=== PATIENT | male | born 1945 | race African-American/Black ===

== ENCOUNTER 2018-02-24 07:43 | Inpatient (IN) | payer BC, MEDICAID ==
[~2018-02-24] VITALS: Ht 175.3 cm; Wt 89.8 kg
[2018-02-24] MEDS ORDERED: METHYLPREDNISOLONE SOD SUCC 125 MG/2 ML VIAL IV STA (08:38)
[2018-02-24] MEDS ORDERED: IPRATROPIUM/ALBUTEROL 0.5-3(2.5)MG/3ML NEB HHN ONE (08:45)
[2018-02-24] MEDS ORDERED: IPRATROPIUM/ALBUTEROL 0.5-3(2.5)MG/3ML NEB ONE (08:49)
[2018-02-24 09:17] LABS: HEMATOCRIT. 26.5 % (42.0-52.0); HEMOGLOBIN. 7.8 g/dL (14.0-18.0); MEAN CORPUSCULAR HEMOGLOBIN 20.2 pg (28.0-32.0); MEAN CORPUSCULAR VOLUME 68.9 fL (80.0-94.0); MEAN PLATELET VOLUME 8.8 fl (7.4-10.4); PLATELET 422 x1000/uL (130-400); RED BLOOD CELL COUNT 3.84 mill/uL (4.7-6.1); RED CELL DISTRIBUTION WIDTH 26.3 % (11.6-14.6)
[2018-02-24 09:25] LABS: CHLORIDE 109 mEq/L (98-107)
[2018-02-24 09:41] LABS: PLATELET ESTIMATE SLIGHTLY INCREASED
[2018-02-24] MEDS ORDERED: FUROSEMIDE 40MG/4ML VIAL IVP ONE (11:45)
[2018-02-24 17:00] VITALS: BP 139/58
[2018-02-24] MEDS ORDERED: CLONIDINE 0.1MG TABLET PO PRN (17:45)
[2018-02-24] MEDS ORDERED: ONDANSETRON HCL 4MG/2ML INJ IV PRN (17:45)
[2018-02-24] MEDS ORDERED: GUAIFENESIN 200MG/10ML SUGAR FREE UDC PO PRN (17:45)
[2018-02-24] MEDS ORDERED: MAGNESIUM/ALUMINUM HYDROXIDE/SIMETHICONE 30ML UDC PO PRN (17:45)
[2018-02-24] MEDS ORDERED: ACETAMINOPHEN 325MG TABLET PO PRN (17:45)
[2018-02-24 18:24] LABS: TOTAL IRON BINDING CAPACITY 373 ug/dL (250-450)
[2018-02-24] MEDS: LOSARTAN POTASSIUM 25 MG TABLET PO SCH (18:52)
[2018-02-24 20:00] VITALS: BP 124/52
[2018-02-24 20:36] LABS: BG BASE EXCESS 2.4 mmol/L (-2.0-2.0); BG CARBOXYHEMOGLOBIN 0.8 % (0.5-1.5); BG DEOXYHEMOGLOBIN 3.1 % (0.0-5.0); BG FRACTION INSPIRED OXYGEN 21; BG HCO3 ACT 25.7 mmol/L (22.0-26.0); BG METHEMOGLOBIN 0.3 % (0.0-1.5); BG OXYGEN SATURATION 96.9 % (92.0-98.5); BG OXYHEMOGLOBIN 95.8 % (94.0-97.0); BG PCO2 34.7 mmHg (35.0-45.0); BG PH 7.488 (7.350-7.450); BG PO2 87.7 mmHg (75.0-100.0); BG SAMPLE SITE RIGHT RADIAL; BG TOTAL HEMOGLOBIN 8.5 g/dL (12.0-18.0); BG VENT MODE ROOM AIR
[2018-02-24] MEDS: ENOXAPARIN 40MG/0.4ML SYR SUBCUT SCH (21:01)
[2018-02-24] MEDS: AZITHROMYCIN 500 MG in DEXT 5% WATER 250 ML IV SCH (21:39)
[2018-02-24] MEDS: IPRATROPIUM/ALBUTEROL 0.5-3(2.5)MG/3ML NEB HHN SCH (22:19)
[2018-02-25] VITALS (10 sets, daily range): BP systolic 111–137; BP diastolic 50–69
[2018-02-25] MEDS: IPRATROPIUM/ALBUTEROL 0.5-3(2.5)MG/3ML NEB HHN SCH ×6 (00:14→21:13)
[2018-02-25 03:55] LABS: *AMPHETAMINES SCREEN URINE NEGATIVE (NEGATIVE); *BARBITURATES SCREEN URINE NEGATIVE (NEGATIVE); *BENZODIAZEPINES SCREEN URINE NEGATIVE (NEGATIVE); *COCAINE SCREEN URINE PRESUMTIVE POSITIVE (NEGATIVE); CANNABINOID URINE SCREEN PRESUMTIVE POSITIVE (NEGATIVE); METHADONE URINE SCREEN NEGATIVE (NEGATIVE); OPIATES URINE SCREEN NEGATIVE (NEGATIVE); PHENCYCLIDINE URINE SCREEN NEGATIVE (NEGATIVE)
[2018-02-25 06:46] LABS: HEMATOCRIT. 26.7 % (42.0-52.0); HEMOGLOBIN. 8.2 g/dL (14.0-18.0); MEAN CORPUSCULAR HEMOGLOBIN 21.5 pg (28.0-32.0); MEAN CORPUSCULAR VOLUME 69.9 fL (80.0-94.0); MEAN PLATELET VOLUME 8.8 fl (7.4-10.4); PLATELET 379 x1000/uL (130-400); RED BLOOD CELL COUNT 3.82 mill/uL (4.7-6.1); RED CELL DISTRIBUTION WIDTH 28.7 % (11.6-14.6)
[2018-02-25 06:50] LABS: CHLORIDE 104 mEq/L (98-107)
[2018-02-25 07:09] LABS: CREATINE KINASE MB FRACTION 2.7 ng/mL (0.5-3.6)
[2018-02-25] MEDS: FERROUS SULFATE 325MG TABLET PO SCH ×3 (09:06→18:12)
[2018-02-25] MEDS: POTASSIUM CHLORIDE 10MEQ TABLET SR PO SCH (09:07)
[2018-02-25] MEDS: LOSARTAN POTASSIUM 25 MG TABLET PO SCH (09:07)
[2018-02-25] MEDS: DOCUSATE SODIUM 250MG CAPSULE PO SCH (09:07)
[2018-02-25] MEDS: TAMSULOSIN HCL 0.4MG SR CAPSULE PO SCH (09:07)
[2018-02-25] MEDS: FUROSEMIDE 40MG/4ML VIAL IVP SCH (09:12)
[2018-02-25] MEDS ORDERED: LOSA25TA3 PO (10:31)
[2018-02-25] MEDS ORDERED: TAMS-11 PO (10:31)
[2018-02-25] MEDS ORDERED: PANTOPRAZOLE 40MG DR TABLET PO NR (12:15)
[2018-02-25] MEDS ORDERED: FERROUS SULFATE 325MG TABLET PO SCH (12:40)
[2018-02-25 13:00] LABS: BG BASE EXCESS 2.7 mmol/L (-2.0-2.0); BG CARBOXYHEMOGLOBIN 1.1 % (0.5-1.5); BG FRACTION INSPIRED OXYGEN 21; BG HCO3 ACT 26.6 mmol/L (22.0-26.0); BG METHEMOGLOBIN 0.3 % (0.0-1.5); BG OXYGEN SATURATION 95.9 % (92.0-98.5); BG OXYHEMOGLOBIN 94.6 % (94.0-97.0); BG PCO2 37.8 mmHg (35.0-45.0); BG PH 7.465 (7.350-7.450); BG PO2 80.4 mmHg (75.0-100.0); BG SAMPLE SITE RIGHT RADIAL; BG TOTAL HEMOGLOBIN 9.4 g/dL (12.0-18.0); BG VENT MODE ROOM AIR
[2018-02-25] MEDS ORDERED: ALBUTEROL (0.083%) 2.5MG/3ML NEB HHN SCH (13:00)
[2018-02-25] MEDS ORDERED: LIDOCAINE HCL/PF 1% 2ML VIAL ONE (15:11)
[2018-02-25] MEDS: AZITHROMYCIN 500 MG in DEXT 5% WATER 250 ML IV SCH (20:37)
[2018-02-25] MEDS: ENOXAPARIN 40MG/0.4ML SYR SUBCUT SCH (20:38)
[2018-02-25] MEDS ORDERED: MONTELUKAST SODIUM 10MG TABLET PO SCH (21:00)
[2018-02-25] MEDS: BUDESONIDE 0.5MG/2ML NEB HHN SCH (21:13)
[2018-02-26] VITALS: BP 116/61
[2018-02-26] MEDS: IPRATROPIUM/ALBUTEROL 0.5-3(2.5)MG/3ML NEB HHN SCH ×4 (00:04→13:41)
[2018-02-26 04:00] VITALS: BP 128/52
[2018-02-26] MEDS ORDERED: PANTOPRAZOLE 40MG DR TABLET PO SCH (07:10)
[2018-02-26 08:00] VITALS: BP 138/56
[2018-02-26] MEDS: FUROSEMIDE 40MG/4ML VIAL IVP SCH (08:18)
[2018-02-26] MEDS: DOCUSATE SODIUM 250MG CAPSULE PO SCH (08:18)
[2018-02-26] MEDS: LOSARTAN POTASSIUM 25 MG TABLET PO SCH (08:18)
[2018-02-26] MEDS: POTASSIUM CHLORIDE 10MEQ TABLET SR PO SCH (08:19)
[2018-02-26] MEDS: FERROUS SULFATE 325MG TABLET PO SCH ×2 (08:19→12:02)
[2018-02-26] MEDS: TAMSULOSIN HCL 0.4MG SR CAPSULE PO SCH (08:19)
[2018-02-26 08:46] LABS: HEMATOCRIT. 30.4 % (42.0-52.0); HEMOGLOBIN. 9.2 g/dL (14.0-18.0); MEAN CORPUSCULAR HEMOGLOBIN 21.3 pg (28.0-32.0); MEAN CORPUSCULAR VOLUME 70.5 fL (80.0-94.0); MEAN PLATELET VOLUME 8.9 fl (7.4-10.4); PLATELET 381 x1000/uL (130-400); RED BLOOD CELL COUNT 4.31 mill/uL (4.7-6.1); RED CELL DISTRIBUTION WIDTH 28.2 % (11.6-14.6)
[2018-02-26 08:58] LABS: CHLORIDE 103 mEq/L (98-107)
[2018-02-26] MEDS: BUDESONIDE 0.5MG/2ML NEB HHN SCH (09:34)
[2018-02-26 09:57] VITALS: BP 138/56
[2018-02-26 11:50] VITALS: BP 110/88
[2018-02-26 14:07] LABS: NUCLEATED RED BLOOD CELLS 1 /100 WBC
[2018-02-26 14:08] LABS: PLATELET ESTIMATE NORMAL
[2018-02-27 10:32] LABS: NUCLEATED RED BLOOD CELLS 1 /100 WBC; PLATELET ESTIMATE NORMAL
== END 2018-02-26 14:50 | disposition home or self-care (01) | DRG 190 ==
LOC: ER 08:31 → 8WST 14:16 → ENRESERV 15:15
PROVIDERS: ADMIT Internal Medicine Geriatric Medicine; ATTEND Internal Medicine Geriatric Medicine
PROC: 30233P1 Transfusion of Nonautologous Frozen Red Cells into Peripheral Vein, Percutaneous Approach (ICD-10-PCS; principal; 2018-02-25)
DX: J44.1 Chronic obstructive pulmonary disease with (acute) exacerbation (principal); I50.23 Acute on chronic systolic (congestive) heart failure; J45.901 Unspecified asthma with (acute) exacerbation; J84.9 Interstitial pulmonary disease, unspecified; K92.2 Gastrointestinal hemorrhage, unspecified; D50.0 Iron deficiency anemia secondary to blood loss (chronic); F19.10 Other psychoactive substance abuse, uncomplicated; I11.0 Hypertensive heart disease with heart failure; N40.0 Benign prostatic hyperplasia without lower urinary tract symptoms; F17.200 Nicotine dependence, unspecified, uncomplicated; Z72.89 Other problems related to lifestyle; B96.89 Other specified bacterial agents as the cause of diseases classified elsewhere
CPT/HCPCS: 36415; 36600; 71045; 80048; 80305; 82375; 82553; 82805; 83540; 83550; 83880; 84484; 86850; 86870; 86900; 86920; 87804; 93005; 93970; 94640; 96374; 96375; 99285; G0482; J0456; J1650; J1940; J2930; J3490; J7050; J7060; J7620; J7626; P9016

== ENCOUNTER 2018-03-15 08:40 | Emergency (ER) | payer MEDICARE, MEDICAID, BC ==
[~2018-03-15] VITALS: Ht 182.9 cm; Wt 72.0 kg
[~2018-03-15 08:40] MED LIST: LOSA25TA3 PO; TAMS-11 PO
[2018-03-15] MEDS ORDERED: IPRATROPIUM BROMIDE (0.02%) 0.5MG/2.5ML NEB HHN STA (09:05)
[2018-03-15] MEDS ORDERED: METHYLPREDNISOLONE SOD SUCC 125 MG/2 ML VIAL IV STA (09:06)
[2018-03-15 09:43] LABS: HEMOGLOBIN. 7.4 g/dL (14.0-18.0); MEAN CORPUSCULAR HEMOGLOBIN 21.7 pg (28.0-32.0); MEAN CORPUSCULAR VOLUME 73.5 fL (80.0-94.0); MEAN PLATELET VOLUME 8.4 fl (7.4-10.4); PLATELET 392 x1000/uL (130-400); RED CELL DISTRIBUTION WIDTH 29.2 % (11.6-14.6)
[2018-03-15 09:47] LABS: CHLORIDE 110 mEq/L (98-107)
[2018-03-15] MEDS: ALBUTEROL (0.083%) 2.5MG/3ML NEB HHN SCH ×2 (10:11→10:12)
[2018-03-15 10:29] LABS: PLATELET ESTIMATE NORMAL
[2018-03-15 10:34] VITALS: BP 133/62
== END 2018-03-15 10:45 | disposition home or self-care (01) ==
LOC: ER 08:40
DX: J45.901 Unspecified asthma with (acute) exacerbation (principal); Z91.14 Patient's other noncompliance with medication regimen; I11.0 Hypertensive heart disease with heart failure; I50.9 Heart failure, unspecified; J44.9 Chronic obstructive pulmonary disease, unspecified
CPT/HCPCS: 36415; 71045; 80053; 83880; 84484; 85025; 93005; 94640; 96374; 99285; J2930; J7611

== ENCOUNTER 2018-06-07 23:06 | Inpatient (IN) | payer MEDICARE, MEDICAID ==
[~2018-06-07] VITALS: Ht 182.9 cm; Wt 85.7 kg
[2018-06-07] MEDS ORDERED: IPRATROPIUM BROMIDE (0.02%) 0.5MG/2.5ML NEB HHN STA (23:34)
[2018-06-07] MEDS ORDERED: PREDNISONE 20MG TABLET PO STA (23:34)
[2018-06-07] MEDS ORDERED: ALBUTEROL (0.083%) 2.5MG/3ML NEB HHN STA (23:34)
[2018-06-08] VITALS (11 sets, daily range): BP systolic 117–141; BP diastolic 42–62
[2018-06-08 00:06] LABS: HEMATOCRIT. 23.7 % (42.0-52.0); MEAN CORPUSCULAR HEMOGLOBIN 18.9 pg (28.0-32.0); MEAN CORPUSCULAR VOLUME 63.9 fL (80.0-94.0); MEAN PLATELET VOLUME 8.6 fl (7.4-10.4); PLATELET 405 x1000/uL (130-400); RED BLOOD CELL COUNT 3.71 mill/uL (4.7-6.1); RED CELL DISTRIBUTION WIDTH 22.6 % (11.6-14.6)
[2018-06-08 00:08] LABS: CHLORIDE 106 mEq/L (98-107)
[2018-06-08 00:09] LABS: INR 1.1; PROTHROMBIN TIME 11.8 sec (9.6-11.0)
[2018-06-08 01:01] LABS: PLATELET ESTIMATE NORMAL
[2018-06-08] MEDS ORDERED: IPRA3AMP9 HHN (04:14)
[2018-06-08] MEDS ORDERED: FURO-152 MT (04:14)
[2018-06-08] MEDS ORDERED: ACETAMINOPHEN 325MG TABLET PO PRN (07:15)
[2018-06-08] MEDS ORDERED: ONDANSETRON HCL 4MG/2ML INJ IV PRN (07:15)
[2018-06-08] MEDS ORDERED: ZOLPIDEM TARTRATE 5MG TABLET PO PRN (07:15)
[2018-06-08] MEDS ORDERED: IPRATROPIUM/ALBUTEROL 0.5-3(2.5)MG/3ML NEB HHN PRN (07:15)
[2018-06-08] MEDS: DOCUSATE SODIUM 100MG CAPSULE PO SCH ×2 (08:21→17:09)
[2018-06-08] MEDS: FERROUS SULFATE 325MG TABLET PO SCH ×3 (08:21→17:09)
[2018-06-08] MEDS: FUROSEMIDE 40MG/4ML VIAL IVP SCH ×2 (08:21→17:09)
[2018-06-08] MEDS: IPRATROPIUM/ALBUTEROL 0.5-3(2.5)MG/3ML NEB HHN SCH ×4 (09:17→20:04)
[2018-06-08] MEDS: METHYLPREDNISOLONE SOD SUCC 40 MG/ML VIAL IV SCH ×2 (13:00→21:00)
[2018-06-08 13:36] LABS: CLARITY URINE CLEAR (CLEAR); COLOR URINE YELLOW (YELLOW); KETONES URINE NEGATIVE (NEGATIVE); LEUKOCYTE ESTERASE URINE NEGATIVE (NEGATIVE); NITRITE URINE NEGATIVE (NEGATIVE); OCCULT BLOOD URINE NEGATIVE (NEGATIVE); PROTEIN URINE NEGATIVE (NEGATIVE); SPECIFIC GRAVITY URINE 1.006 (1.005-1.030); UROBILINOGEN URINE 0.2 E.U./dL (0.2-1.0)
[2018-06-08 14:03] LABS: *AMPHETAMINES SCREEN URINE NEGATIVE (NEGATIVE); *BARBITURATES SCREEN URINE NEGATIVE (NEGATIVE); METHADONE URINE SCREEN NEGATIVE (NEGATIVE); OPIATES URINE SCREEN NEGATIVE (NEGATIVE); PHENCYCLIDINE URINE SCREEN NEGATIVE (NEGATIVE)
[2018-06-08 14:04] LABS: *BENZODIAZEPINES SCREEN URINE NEGATIVE (NEGATIVE); *COCAINE SCREEN URINE PRESUMTIVE POSITIVE (NEGATIVE); CANNABINOID URINE SCREEN NEGATIVE (NEGATIVE)
[2018-06-08 16:37] LABS: HEMATOCRIT. 26.3 % (42.0-52.0); HEMOGLOBIN. 7.9 g/dL (14.0-18.0); MEAN CORPUSCULAR HEMOGLOBIN 19.9 pg (28.0-32.0); MEAN CORPUSCULAR VOLUME 66.5 fL (80.0-94.0); MEAN PLATELET VOLUME 8.6 fl (7.4-10.4); PLATELET 392 x1000/uL (130-400); RED BLOOD CELL COUNT 3.96 mill/uL (4.7-6.1); RED CELL DISTRIBUTION WIDTH 25.5 % (11.6-14.6)
[2018-06-08 16:48] LABS: D-DIMER 0.34 mg/L FEU (<0.50)
[2018-06-08 16:53] LABS: CREATINE KINASE MB FRACTION 3.9 ng/mL (0.5-3.6)
[2018-06-08 17:06] LABS: FOLIC ACID (FOLATE) SERUM 19.2 ng/mL (>5.38)
[2018-06-08] MEDS: MONTELUKAST SODIUM 10MG TABLET PO SCH (17:09)
[2018-06-08] MEDS: PANTOPRAZOLE SODIUM 40 MG/VIAL IV SCH (17:11)
[2018-06-08 17:12] LABS: HEPATITIS B SURFACE ANTIGEN NEGATIVE
[2018-06-08 17:26] LABS: PLATELET ESTIMATE NORMAL
[2018-06-08 17:42] LABS: HEPATITIS A AB IGM NEGATIVE (NEGATIVE)
[2018-06-09] VITALS: BP 121/61
[2018-06-09] MEDS: IPRATROPIUM/ALBUTEROL 0.5-3(2.5)MG/3ML NEB HHN SCH ×4 (00:57→12:32)
[2018-06-09 04:00] VITALS: BP 118/55
[2018-06-09] MEDS: METHYLPREDNISOLONE SOD SUCC 40 MG/ML VIAL IV SCH ×2 (04:37→12:21)
[2018-06-09 05:52] LABS: HEMOGLOBIN 8.1 g/dL (14.0-18.0); MEAN CORPUSCULAR HEMOGLOBIN 19.9 pg (28.0-32.0); MEAN CORPUSCULAR VOLUME 66.5 fL (80.0-94.0); PLATELET 369 x1000/uL (130-400); RED BLOOD CELL COUNT 4.07 mill/uL (4.7-6.1); RED CELL DISTRIBUTION WIDTH 25.7 % (11.6-14.6)
[2018-06-09 06:24] LABS: CHLORIDE 103 mEq/L (98-107)
[2018-06-09] MEDS: FERROUS SULFATE 325MG TABLET PO SCH ×3 (06:34→17:03)
[2018-06-09 06:38] LABS: CREATINE KINASE 163 IU/L (39-308)
[2018-06-09 06:40] LABS: CREATINE KINASE MB FRACTION 2.6 ng/mL (0.5-3.6)
[2018-06-09 08:00] VITALS: BP 135/71
[2018-06-09] MEDS: FUROSEMIDE 40MG/4ML VIAL IVP SCH (08:29)
[2018-06-09] MEDS: DOCUSATE SODIUM 100MG CAPSULE PO SCH ×2 (08:29→16:16)
[2018-06-09] MEDS: PANTOPRAZOLE SODIUM 40 MG/VIAL IV SCH (08:29)
[2018-06-09] MEDS ORDERED: FOLIC ACID 1MG TABLET PO SCH (09:00)
[2018-06-09] MEDS ORDERED: POLYETHYLENE GLYCOL 3350 (17GM) 1 DOSE PACK PO SCH (09:00)
[2018-06-09] MEDS ORDERED: THIAMINE HCL 100MG TABLET PO SCH (09:00)
[2018-06-09] MEDS ORDERED: SORBITOL 70% SOLN 30ML PO SCH (11:15)
[2018-06-09 12:00] VITALS: BP 128/56
[2018-06-09] MEDS ORDERED: MONT10TA21 PO (15:13)
[2018-06-09] MEDS ORDERED: P20 MT (15:13)
[2018-06-09] MEDS ORDERED: VITA-137 MT (15:13)
[2018-06-09] MEDS ORDERED: PANT40TA4 MT (15:13)
[2018-06-09] MEDS ORDERED: ALBU18HF2 IH (15:15)
[2018-06-09] MEDS ORDERED: FLUT1DIS3 INH (15:15)
[2018-06-09 15:57] VITALS: BP 130/76
[2018-06-09 16:18] LABS: CREATINE KINASE 150 IU/L (39-308)
[2018-06-09 16:19] LABS: CREATINE KINASE MB FRACTION 3.3 ng/mL (0.5-3.6)
[2018-06-09] MEDS: MONTELUKAST SODIUM 10MG TABLET PO SCH (17:03)
== END 2018-06-09 17:15 | disposition home or self-care (01) | DRG 190 ==
LOC: ER 23:06 → 8WST 06-08 00:35 → ENRESERV 06-08 03:17
PROVIDERS: ADMIT Internal Medicine; ATTEND Internal Medicine
PROC: 30233N1 Transfusion of Nonautologous Red Blood Cells into Peripheral Vein, Percutaneous Approach (ICD-10-PCS; principal; 2018-06-08)
DX: J44.1 Chronic obstructive pulmonary disease with (acute) exacerbation (principal); I50.43 Acute on chronic combined systolic (congestive) and diastolic (congestive) heart failure; I42.9 Cardiomyopathy, unspecified; I11.0 Hypertensive heart disease with heart failure; D50.9 Iron deficiency anemia, unspecified; E78.5 Hyperlipidemia, unspecified; F14.90 Cocaine use, unspecified, uncomplicated; F17.210 Nicotine dependence, cigarettes, uncomplicated; I35.0 Nonrheumatic aortic (valve) stenosis; N40.0 Benign prostatic hyperplasia without lower urinary tract symptoms; Z95.810 Presence of automatic (implantable) cardiac defibrillator; Z71.51 Drug abuse counseling and surveillance of drug abuser
CPT/HCPCS: 36415; 71045; 80048; 80061; 80305; 82550; 82553; 82607; 82728; 82746; 83036; 83540; 83550; 83880; 84439; 84443; 84484; 85027; 85379; 85384; 86705; 86709; 86803; 86850; 86900; 86920; 87340; 93005; 93306; 93970; 94640; 99285; C9113; J1940; J2920; J7040; J7512; J7611; J7620; P9016